=== PATIENT | male | born 1935 | race Caucasian/White ===

== ENCOUNTER 2017-04-30 10:22 | Inpatient (IN) ==
[2017-04-30] MEDS ORDERED: NS 1,000 ML IV ONE ×2 (10:52→11:01)
[2017-04-30 11:13] LABS: MANUAL DIFF NEEDED? NO
[2017-04-30 11:26] LABS: BASO% 0.2 % (0.0-0.8); EOS# 0.06 X1000 (0.0-0.7); EOS% 0.5 % (0.0-10.0); HEMATOCRIT 32.7 % (42.0-52.0); HEMOGLOBIN 10.9 g/dL (14.0-18.0); IMM GRAN# 0.09 X1000 (0.0-0.04); IMM GRAN% 0.7 % (0.0-0.5); LYMPH# 0.98 X1000 (1.2-3.4); LYMPH% 7.7 % (20.5-51.1); MCH 31.8 PG (27-31); MCHC 33.3 g/dL (33-37); MCV 95.3 FL (81-99); MONO# 0.81 X1000 (0.11-0.59); MONO% 6.3 % (1.7-9.3); MPV 10.2 FL (7.4-10.4); NEUT% 84.6 % (42.2-75.2); PLT 147 X1000 (130-400); RBC 3.43 XMIL (4.7-6.1)
[2017-04-30 12:30] LABS: URINE CULTURE NEEDED? NO; URINE SOURCE CLEAN CATCH
[2017-04-30 12:34] LABS: BILIRUBIN URINE NEGATIVE (NEGATIVE); BLOOD URINE NEGATIVE (NEGATIVE); COLOR YELLOW; GLUCOSE URINE NEGATIVE (NEGATIVE); LEUKOCYTES URINE NEGATIVE (NEGATIVE); NITRITE URINE NEGATIVE (NEGATIVE); PH URINE 5.5; PROTEIN URINE TRACE mg/dL (NEGATIVE); SP GRAVITY URINE 1.015; TURBIDITY URINE CLEAR (CLEAR); UROBILINOGEN URINE NORMAL (NORMAL)
[2017-04-30 12:35] LABS: UR EPITHELIAL CELLS <10 /HPF (<10); URINE BACTERIA NEGATIVE /HPF; URINE MICRO REVIEW NEEDED? YES; URINE RBC <10 /HPF (<10); URINE WBC <10 /HPF (<10)
[2017-04-30 12:46] LABS: ALBUMIN 3.7 g/dL (3.5-5.0); CALCIUM 8.6 mg/dL (8.8-10.2); POTASSIUM 4.2 mmol/L (3.5-5.1); TOTAL BILIRUBIN 0.26 mg/dL (0.20-1.00); TOTAL PROTEIN 6.2 g/dL (6.3-8.3)
[2017-04-30 13:03] LABS: URINE CASTS GRANULAR PRESENT; URINE CRYSTALS NONE SEEN; URINE SMALL ROUND CELLS NONE SEEN
[2017-04-30 13:24] LABS: ALLEN TEST YES; BE -2.6 mmoll (-3.0-3.0); BLOOD TYPE ARTERIAL; DRAW SITE L RADIAL; MODALITY CANNULA; PCO2(98.6) 40 mmHg (35-45); PO2(98.6) 113 mmHg (60-100); SAMPLE BLOOD; SAO2 97.4 % (95.0-100.0); THB 10.1 g/dL (11.5-17.4); pH(98.6) 7.36 (7.35-7.45)
[2017-04-30] MEDS ORDERED: MORPHINE IV ONE (14:45)
[2017-04-30] MEDS ORDERED: ZOFRAN ONE (15:10)
[2017-04-30] MEDS ORDERED: HEPARIN ONE (15:14)
[2017-04-30] MEDS ORDERED: KEFZOL 1 GM/D5W 1 GM/50 ML IVPB ONE (15:14)
[2017-04-30] MEDS ORDERED: NS 2,000 ML ONE ×3 (15:15→18:46)
[2017-04-30] MEDS ORDERED: VERSED ONE (15:40)
[2017-04-30] MEDS ORDERED: NEO-SYNEPHRINE ONE (16:30)
[2017-04-30] MEDS ORDERED: NORCURON ONE (16:30)
[2017-04-30] MEDS ORDERED: KEFZOL 1 GM in NS 50 ML IV SCH (18:00)
[2017-04-30] MEDS ORDERED: NEO-SYNEPHRINE 100 MG in NS 250 ML IV SCH (18:00)
[2017-04-30] MEDS ORDERED: NS 1,000 ML IV SCH (18:00)
[2017-04-30] MEDS ORDERED: DILAUDID IV PRN (18:00)
[2017-04-30 18:14] LABS: ALLEN TEST NO; BE -22.6 mmoll (-3.0-3.0); BLOOD TYPE ARTERIAL; DRAW SITE R RADIAL; METHB 0.6 % (0.0-1.5); O2(CT) 10.8 mL/dL (15.0-23.0); PCO2(98.6) 41 mmHg (35-45); PO2(98.6) 180 mmHg (60-100); SAMPLE BLOOD; SAO2 99.3 % (95.0-100.0); SRATE 14 BPM; THB 7.5 g/dL (11.5-17.4); TVOL 650 mL; pH(98.6) 6.92 (7.35-7.45)
[2017-04-30 18:15] LABS: MODALITY VENTILATOR
[2017-04-30] MEDS ORDERED: NS 500 ML ONE (18:16)
[2017-04-30 18:17] LABS: HEMOGLOBIN 7.7 g/dL (14.0-18.0)
[2017-04-30] MEDS ORDERED: CALCIUM CHLORIDE 1 GM in NS 100 ML IV ONE (18:27)
[2017-04-30] MEDS ORDERED: EPINEPHRINE SYRINGE ONE (18:30)
[2017-04-30] MEDS ORDERED: SODIUM BICARBONATE 8.4% ONE (18:30)
[2017-04-30] MEDS ORDERED: SODIUM BICARBONATE 8.4% 100 MEQ in D5W 1,000 ML IV ONE (18:30)
[2017-04-30] MEDS ORDERED: DOPAMINE 800 MG/D5W 800 MG/500 ML IV.SOLN IV SCH (18:34)
[2017-04-30] MEDS ORDERED: CALCIUM CHLORIDE SYRINGE IV ONE (18:35)
[2017-04-30 18:56] LABS: I-STAT BE -25 mmoll (-2-3); I-STAT GLUCOSE 312 mg/dL (70-105); I-STAT HCO3 8.1 mmoll (22.0-26.0); I-STAT HEMATOCRIT 22 % (38-51); I-STAT HEMOGLOBIN 7.5 g/dL (11.5-17.5); I-STAT IONIZED CALCIUM 1.12 mmoll (1.12-1.32); I-STAT K 3.8 mmoll (3.5-4.9); I-STAT PCO2 42.5 mmHg (35.0-45.0); I-STAT SO2 43 % (95-98); I-STAT SODIUM 140 mmoll (138-146); I-STAT TCO2 9 mmoll (23-27); I-STAT pH 6.888 (7.350-7.450)
[2017-04-30] MEDS ORDERED: SODIUM BICARBONATE IV SCH (19:00)
[2017-04-30] MEDS ORDERED: D5 NS IV SCH (19:00)
[2017-04-30 19:25] LABS: URINE MICRO REVIEW NEEDED? NO; URINE SOURCE CATH
[2017-04-30 19:28] LABS: BILIRUBIN URINE NEGATIVE (NEGATIVE); BLOOD URINE SMALL (NEGATIVE); COLOR YELLOW; GLUCOSE URINE NEGATIVE (NEGATIVE); LEUKOCYTES URINE NEGATIVE (NEGATIVE); NITRITE URINE NEGATIVE (NEGATIVE); PH URINE 5.5; PROTEIN URINE NEGATIVE (NEGATIVE); SP GRAVITY URINE 1.016; TURBIDITY URINE CLEAR (CLEAR); UR EPITHELIAL CELLS <10 /HPF (<10); URINE BACTERIA NEGATIVE /HPF; URINE WBC <10 /HPF (<10); UROBILINOGEN URINE NORMAL (NORMAL)
[2017-04-30 19:30] LABS: ALLEN TEST YES; BE -23.2 mmoll (-3.0-3.0); BLOOD TYPE ARTERIAL; DRAW SITE R FEMORAL; METHB 1.2 % (0.0-1.5); O2(CT) 2.9 mL/dL (15.0-23.0); SAMPLE BLOOD; SAO2 19.7 % (95.0-100.0); SRATE 14 BPM; THB 10.8 g/dL (11.5-17.4); TVOL 650 mL
[2017-04-30 19:32] VITALS: BP 49/41
[2017-04-30 19:32] LABS: MODALITY VENTILATOR; PCO2(98.6) 73 mmHg (35-45)
[2017-04-30 19:33] LABS: PO2(98.6) 15 mmHg (60-100)
[2017-04-30 19:38] LABS: HEMATOCRIT 33.1 % (42.0-52.0); HEMOGLOBIN 10.2 g/dL (14.0-18.0)
[2017-04-30 19:59] LABS: AGAP 16; ALBUMIN 0.6 g/dL (3.5-5.0); ALKALINE PHOSPHATASE 12 U/L (32-122); BUN 21 mg/dL (8-22); CHLORIDE 119 mmol/L (98-107); COSMO 310; GOT 9 U/L (10-34); GPT 7 U/L (10-44); POTASSIUM 5.4 mmol/L (3.5-5.1); SODIUM 147 mmol/L (136-145); TCO2 12 mmol/L (25-35); TOTAL BILIRUBIN < 0.10 mg/dL (0.20-1.00)
[2017-04-30] MEDS ORDERED: EPINEPHRINE SYRINGE IV ONE (20:00)
[2017-04-30] MEDS ORDERED: SODIUM BICARBONATE 8.4% IV ONE (22:20)
== END 2017-04-30 19:55 | disposition expired ==
LOC: ED 10:22 → ICU 18:00
PROVIDERS: ADMIT Surgery; ATTEND Surgery